=== PATIENT | male | born 1990 | race Caucasian/White ===

== ENCOUNTER 2017-04-18 21:43 | Emergency (ER) | payer SELFPAY ==
[2017-04-18 22:16] LABS: Basophils % (Auto) 0.3 % (0.0-1.8); Eosinophils # (Auto) 0.3 K/mm3 (0.0-0.4); Eosinophils % (Auto) 2.2 % (0.0-4.3); Hematocrit 48.3 % (35.5-45.6); Hemoglobin 16.7 gm/dl (11.8-15.2); Lymphocytes # (Auto) 4.5 K/mm3 (1.2-5.4); Lymphocytes % (Auto) 36.7 % (13.4-35.0); Mean Corpuscular HGB Conc 35 % (32-34); Mean Corpuscular Hemoglobin 28 pg (28-32); Mean Corpuscular Volume 82 fl (84-94); Monocytes # (Auto) 0.9 K/mm3 (0.0-0.8); Monocytes % (Auto) 7.2 % (0.0-7.3); Platelet Count 175 K/mm3 (140-440); Red Blood Count 5.87 M/mm3 (3.65-5.03)
[2017-04-18 22:30] LABS: Alanine Aminotransferase 21 units/L (7-56); Albumin 4.6 g/dL (3.9-5); BUN/Creatinine Ratio 16; Blood Urea Nitrogen 14 mg/dL (9-20); Calcium 9.2 mg/dL (8.4-10.2); Hemolysis Index 10
[2017-04-19 00:55] LABS: Bilirubin,Urine NEG (Negative); Blood,Urine NEG (Negative); Color,Urine Yellow (Yellow); Mucus,Urine 1+ /HPF; Protein,Urine <15 mg/dL mg/dL (Negative); WBC,Urine < 1.0 /HPF (0.0-6.0)
[2017-04-19] MEDS ORDERED: TYLENOL PO ONE (01:13)
[2017-04-19] MEDS ORDERED: TYLENOL ONE (01:14)
[2017-04-19] MEDS ORDERED: MORPHINE IV ONE (03:14)
--- NOTE | 2017-04-19 03:30 | Emergency Department Report ---
HPI - General Chief Complaint: Abdominal Pain Time Seen by Provider: 04/19/17 02:55 - HPI HPI: 26-year-old male presents to the emergency department with complaint of some lower left quadrant and periumbilical abdominal discomfort that has been going on since last Sunday, 5 days ago. He denies any nausea, vomiting, fever, back pain, penile discharge. He says that there was a small amount of dysuria earlier today. He did not take anything for her symptoms prior to presentation. He denies any past history. He does not have a primary care physician. ED Past Medical Hx - Past Medical History Previous Medical History?: No - Surgical History Past Surgical History?: No - Social History Smoking Status: Never Smoker Substance Use Type: None - Medications Home Medications: Home Medications Medication Instructions Recorded Confirmed Last Taken Type Acyclovir [Zovirax Tab] 800 mg PO Q6HR #50 tab 10/07/15 Unknown Rx HYDROcodone/APAP 5-325 [[place] 1 each PO Q6HR PRN #10 tablet 04/19/17 Unknown Rx 5-325 mg TAB] ED Review of Systems ROS: Stated complaint: ABDOMINAL PAIN Other details as noted in HPI Comment: All other systems reviewed and negative Constitutional: denies: chills, fever Eyes: denies: eye pain, eye discharge, vision change ENT: denies: ear pain, throat pain Respiratory: denies: cough, shortness of breath, wheezing Cardiovascular: denies: chest pain, palpitations Gastrointestinal: abdominal pain, nausea, vomiting Genitourinary: denies: urgency, dysuria Musculoskeletal: denies: back pain, joint swelling, arthralgia Skin: denies: rash, lesions Neurological: denies: headache, weakness, paresthesias Physical Exam - Physical Exam Vital Signs: Vital Signs 04/18/17 04/19/17 21:51 02:27 Temperature 98 F 98.4 F Pulse Rate 74 Respiratory 16 Rate Blood Pressure 127/95 O2 Sat by Pulse 98 Oximetry Physical Exam: GENERAL: The patient is well-developed well-nourished. HENT: Normocephalic. Atraumatic. Patient has moist mucous membranes. EYES: Extraocular motions are intact. Pupils equal reactive to light bilaterally. NECK: Supple. Trachea is midline. CHEST/LUNGS: Clear to auscultation. There is no respiratory distress noted. HEART/CARDIOVASCULAR: Regular. There is no tachycardia. There is no murmur. ABDOMEN: Abdomen is soft. There is some tenderness palpation to the left side of the abdomen. No guarding. Patient has normal bowel sounds. There is no abdominal distention. SKIN: Skin is warm and dry. NEURO: The patient is awake, alert, and oriented. The patient is cooperative. The patient has no focal neurologic deficits. The patient has normal speech. MUSCULOSKELETAL: There is no tenderness or deformity. There is no limitation range of motion. There is no evidence of acute injury. ED Course Vital Signs 04/18/17 04/19/17 21:51 02:27 Temperature 98 F 98.4 F Pulse Rate 74 Respiratory 16 Rate Blood Pressure 127/95 O2 Sat by Pulse 98 Oximetry ED Medical Decision Making - Lab Data Result diagrams: 04/18/17 21:58 04/18/17 21:58 - Radiology Data Radiology results: report reviewed EXAM: CT ABDOMEN PELVIS W CON HISTORY: lower Abd pain TECHNIQUE: Routine axial imaging was obtained of the abdomen pelvis following the intravenous injection of 100 cc of Omnipaque 350. Delayed axial imaging was obtained through the kidneys ureters and bladder. Sagittal coronal reconstructions were reviewed. FINDINGS: The lung bases are clear. Pleural fluid is not seen. The liver, gallbladder, pancreas, spleen, and adrenal glands appear normal. The kidneys enhance normally. The vasculatures enhance normally. The bowel loops overall are normal in caliber. There are no suspicious air-fluid levels. The appendix appears normal. There no evidence of free fluid or adenopathy. There is a small umbilical hernia containing omental fat. In the pelvis the prostate gland and bladder appear normal. The skeletal structures otherwise appear well maintained. IMPRESSION: No acute process in the abdomen and pelvis. Small umbilical hernia containing omental fat. Transcribed By: MARTA Dictated By: JOSEPH MAGANA MD Electronically Authenticated By: JOSEPH MAGANA MD Signed Date/Time: 04/19/17 8785 - Medical Decision Making Patient presents to the emergency department with about 5 days of abdominal pain. On examination he has normal bowel sounds. There is some left-sided tenderness to palpation but no guarding. Labs are unremarkable including no leukocytosis, no electrolyte abnormalities, renal insufficiency, glucose abnormalities. He has normal belly labs including bilirubin, lipase and LFTs. Urinalysis does not show any urinary tract infection. CT of the abdomen and pelvis shows no acute process. Overall I did not find any etiology of the patient's symptoms but he appears safe for discharge home at this time for outpatient follow-up. Vital signs stable including being afebrile. He'll be discharged home with some pain medication, referrals for both primary care and gastroenterology. He has been encouraged to return to the emergency Department with any worsening of symptoms or any acute distress. - Differential Diagnosis gastritis, appendicitis, diverticulitis, pancreatitis Critical Care Time: No Critical care attestation.: If time is entered above; I have spent that time in minutes in the direct care of this critically ill patient, excluding procedure time. ED Disposition Clinical Impression: Abdominal pain Qualifiers: Abdominal location: unspecified location Qualified Code(s): R10.9 - Unspecified abdominal pain Disposition: TO HOME OR SELFCARE Is pt being admited?: No Condition: Stable Instructions: Abdominal Pain (ED) Additional Instructions: Please follow up with a primary care physician in the next few days. I have given you a referral for a local pecan huller, Dr. Gonsalves, to follow up regarding your abdominal pain. Return to the emergency Department with any worsening of your symptoms or any acute distress. You have been prescribed a medication that is sedating and therefore should not be taken prior to driving, working, and responsible for children and in no way should be mixed with alcohol of any quantity. Prescriptions: HYDROcodone/APAP 5-325 [[place] 5-325 mg TAB] 1 each PO Q6HR PRN #10 tablet PRN Reason: Pain Referrals: TRINIDAD GONSALVES MD [Staff Physician] - 3-5 Days [facility] [place] [Outside] - 3-5 Days Time of Disposition: 04:54 Print Language: ENGLISH
[2017-04-19 04:06] VITALS: BP 120/80
--- NOTE | 2017-04-19 04:44 | Cat Scan Report ---
FINAL REPORT EXAM: CT ABDOMEN PELVIS W CON HISTORY: lower Abd pain TECHNIQUE: Routine axial imaging was obtained of the abdomen pelvis following the intravenous injection of 100 cc of Omnipaque 350. Delayed axial imaging was obtained through the kidneys ureters and bladder. Sagittal coronal reconstructions were reviewed. FINDINGS: The lung bases are clear. Pleural fluid is not seen. The liver, gallbladder, pancreas, spleen, and adrenal glands appear normal. The kidneys enhance normally. The vasculatures enhance normally. The bowel loops overall are normal in caliber. There are no suspicious air-fluid levels. The appendix appears normal. There no evidence of free fluid or adenopathy. There is a small umbilical hernia containing omental fat. In the pelvis the prostate gland and bladder appear normal. The skeletal structures otherwise appear well maintained. IMPRESSION: No acute process in the abdomen and pelvis. Small umbilical hernia containing omental fat.
== END 2017-04-19 05:04 | disposition home or self-care (01) ==
LOC: ED 21:43
DX: R10.32 Left lower quadrant pain (principal); R10.33 Periumbilical pain
CPT/HCPCS: 36415; 74177; 80053; 81001; 83690; 85025; 96374; 99284; J2270; Q9967

== ENCOUNTER 2018-08-12 19:44 | Emergency (ER) | payer OTHER ==
[2018-08-12] MEDS ORDERED: MORPHINE IV ONE ×2 (20:25→22:32)
[2018-08-12] MEDS ORDERED: NACL 0.9% 1000 ML 1,000 ML IV ONE (20:25)
[2018-08-12] MEDS ORDERED: MORPHINE ONE ×3 (20:40→22:52)
[2018-08-12 20:41] LABS: Basophils # (Auto) 0.1 K/mm3 (0.0-0.1); Basophils % (Auto) 0.7 % (0.0-1.8); Eosinophils # (Auto) 0.2 K/mm3 (0.0-0.4); Eosinophils % (Auto) 2.3 % (0.0-4.3); Hematocrit 44.8 % (35.5-45.6); Hemoglobin 15.3 gm/dl (11.8-15.2); Lymphocytes # (Auto) 3.3 K/mm3 (1.2-5.4); Lymphocytes % (Auto) 31.1 % (13.4-35.0); Mean Corpuscular HGB Conc 34 % (32-34); Mean Corpuscular Volume 85 fl (84-94); Monocytes # (Auto) 0.8 K/mm3 (0.0-0.8); Monocytes % (Auto) 7.5 % (0.0-7.3); Platelet Count 140 K/mm3 (140-440); Red Cell Distribution Width 13.9 % (13.2-15.2)
--- NOTE | 2018-08-12 20:46 | Emergency Department Report ---
HPI - General Time Seen by Provider: 08/12/18 20:18 - HPI HPI: 27-year-old male presents to the emergency department with complaint of left knee and thigh pain that has been going on since he had a fall yesterday. He presents with some mild bruising and mild swelling. He denies any past medical history. He has not taken anything for her symptoms prior to presentation. Patient says that he was doing some type of activity yesterday when his knee bent medially. Since that time, and due to all of these symptoms, the patient is no longer able to bear any weight or ambulate. ED Past Medical Hx - Past Medical History Previous Medical History?: No - Surgical History Past Surgical History?: No - Social History Smoking Status: Never Smoker Substance Use Type: None - Medications Home Medications: Home Medications Medication Instructions Recorded Confirmed Last Taken Type Acyclovir [Zovirax Tab] 800 mg PO Q6HR #50 tab 10/07/15 Unknown Rx HYDROcodone/APAP 5-325 [[place] 1 each PO Q6HR PRN #10 tablet 08/12/18 Unknown Rx 5-325 mg TAB] ED Review of Systems ROS: Stated complaint: LT LEG/KNEE PAIN Other details as noted in HPI Comment: All other systems reviewed and negative Constitutional: denies: chills, fever Eyes: denies: eye pain, vision change ENT: denies: ear pain, throat pain Respiratory: denies: cough, shortness of breath Cardiovascular: denies: chest pain, palpitations Gastrointestinal: denies: abdominal pain, vomiting Genitourinary: denies: dysuria, discharge Musculoskeletal: joint swelling, arthralgia, myalgia. denies: back pain Skin: other (echymoses). denies: rash Neurological: denies: headache, numbness Physical Exam - Physical Exam Vital Signs: Vital Signs 08/12/18 20:28 Temperature 98.2 F Pulse Rate 76 Blood Pressure 141/94 Physical Exam: GENERAL: The patient is well-developed well-nourished. HENT: Normocephalic. Atraumatic. Patient has moist mucous membranes. EYES: Extraocular motions are intact. Pupils equal reactive to light bilaterally. NECK: Supple. Trachea is midline. CHEST/LUNGS: Clear to auscultation. There is no respiratory distress noted. HEART/CARDIOVASCULAR: Regular. There is no tachycardia. There is no murmur. ABDOMEN: There is no abdominal distention. SKIN: There is some nonpitting swelling of the left anterior knee. NEURO: The patient is awake, alert, and oriented. The patient is cooperative. The patient has no focal neurologic deficits. The patient has normal speech. MUSCULOSKELETAL: There is tenderness to palpation to the circumferential left knee and distal thigh. Negative anterior and posterior drawer test. Distal pulses intact. Decreased range of motion of the left leg and knee secondary to pain. ED Course Vital Signs 08/12/18 20:28 Temperature 98.2 F Pulse Rate 76 Blood Pressure 141/94 ED Medical Decision Making - Lab Data Result diagrams: 08/12/18 20:42 08/12/18 20:42 - Radiology Data Radiology results: image reviewed interpreted by me: X-ray of the left knee and femur do not show any fractures, dislocations, or any acute processes. - Medical Decision Making This patient presents to the emergency department with complaint of left knee pain and pain to the distal left thigh after some type of an injury yesterday. There is some mild anterior knee swelling and there is circumferential left knee and distal thigh pain to palpation. X-rays were done of the knee and left femur but did not show any signs of any fracture, dislocation or any acute process. However there still could be underlying ligamentous or tendinous or meniscal injury. Patient will be placed in a knee immobilizer and on crutches and will remain nonweightbearing until follow-up with orthopedist. He will return to the ER with any worsening of his symptoms or any acute distress. - Differential Diagnosis fracture, meniscus tear, ligament/tendon injury, dislocation Critical Care Time: No Critical care attestation.: If time is entered above; I have spent that time in minutes in the direct care of this critically ill patient, excluding procedure time. ED Disposition Clinical Impression: Left leg pain Left knee pain Qualifiers: Chronicity: acute Qualified Code(s): M25.562 - Pain in left knee Knee injury Qualifiers: Encounter type: initial encounter Laterality: left Qualified Code(s): S89.92XA - Unspecified injury of left lower leg, initial encounter Disposition: TO HOME OR SELFCARE Is pt being admited?: No Condition: Stable Instructions: Knee Pain (ED), Arthralgia (ED), Knee Immobilizer (ED) Additional Instructions: Remain in the knee immobilizer and nonweightbearing with the crutches until follow-up with an orthopedist. I am giving you a referral for two different orthopedic groups to follow up regarding your knee and leg pains. Return to the emergency Department with any worsening of your symptoms or any acute distress. You have been prescribed a medication that is sedating and therefore should not be taken prior to driving, working, and responsible for children and in no way should be mixed with alcohol of any quantity. Prescriptions: HYDROcodone/APAP 5-325 [[place] 5-325 mg TAB] 1 each PO Q6HR PRN #10 tablet PRN Reason: Pain Referrals: JOSEPH SINGH MD [Staff Physician] - 2-3 Days [facility] [Provider Group] - 2-3 Days Time of Disposition: 22:57 Print Language: PALESTINIAN
[2018-08-12 20:59] LABS: BUN/Creatinine Ratio 16; Blood Urea Nitrogen 14 mg/dL (9-20); Calcium 9.4 mg/dL (8.4-10.2); Hemolysis Index 13
--- NOTE | 2018-08-12 22:31 | XRay Report ---
LEFT FEMUR 5 VIEWS INDICATION / CLINICAL INFORMATION: left leg pain. COMPARISON: None available. FINDINGS: Negative. Signer Name: Yna Spangler MD Signed: 08/12/2018 9:27 PM Workstation Name: [id number]
--- NOTE | 2018-08-12 22:32 | XRay Report ---
LEFT KNEE 3 VIEW INDICATION / CLINICAL INFORMATION: left knee pain. COMPARISON: None available. FINDINGS: Negative. Signer Name: Yan Spangler MD Signed: 08/12/2018 9:28 PM Workstation Name: [id number]
[2018-08-12 23:16] VITALS: BP 132/71
== END 2018-08-12 23:20 | disposition home or self-care (01) ==
LOC: ED 19:44
DX: S89.92XA Unspecified injury of left lower leg, initial encounter (principal); M79.652 Pain in left thigh; W19.XXXA Unspecified fall, initial encounter; Y93.89 Activity, other specified; Y92.89 Other specified places as the place of occurrence of the external cause; Y99.8 Other external cause status
CPT/HCPCS: 36415; 73552; 73562; 80048; 85025; 96374; 96376; 99284; J2270; J7030

== ENCOUNTER 2021-01-19 02:11 | Emergency (ER) | payer SELFPAY ==
[2021-01-19] MEDS ORDERED: IBUPROFEN 800 MG TAB PO ONE (02:21)
--- NOTE | 2021-01-19 02:25 | Emergency Department Report ---
ED General Adult HPI - General Stated complaint: CHEST PAIN Time Seen by Provider: 01/19/21 02:21 - History of Present Illness Initial comments: Patient presents by ambulance with multiple issues. He is complaining of chest pain and back pain. He states his arms and legs hurt. His abdomen hurts. He states that he hurts all over. Pain has been present since Sunday. There has been no fever or chills reported. He has no vomiting or diarrhea. He has had no dysuria or hematuria. He has no cough or congestion. He is just complaining of body pain. He denies recent trauma. He has had no other illness. He has had no sick contacts. He used Tylenol without symptomatic improvement. - Related Data Previous Rx's Medication Instructions Recorded Last Taken Type Acyclovir [Zovirax Tab] 800 mg PO Q6HR #50 tab 10/07/15 Unknown Rx HYDROcodone/APAP 5-325 [[place] 1 each PO Q6HR PRN #10 tablet 08/12/18 Unknown Rx 5-325 mg TAB] Ibuprofen [Motrin] 600 mg PO Q8H PRN #20 tablet 01/19/21 Unknown Rx Allergies Allergy/AdvReac Type Severity Reaction Status Date / Time No Known Allergies Allergy Verified 01/19/21 02:29 ED Review of Systems ROS: Stated complaint: CHEST PAIN Other details as noted in HPI Comment: All other systems reviewed and negative Constitutional: denies: fever Eyes: denies: vision change ENT: denies: throat pain Respiratory: denies: cough Cardiovascular: as per HPI Endocrine: denies: unexplained weight loss Gastrointestinal: as per HPI Genitourinary: denies: dysuria Musculoskeletal: as per HPI Skin: denies: rash Neurological: denies: headache Hematological/Lymphatic: denies: easy bruising ED Past Medical Hx - Past Medical History Previous Medical History?: No - Family History Family history: no significant - Social History Smoking Status: Never Smoker Substance Use Type: None - Medications Home Medications: Home Medications Medication Instructions Recorded Confirmed Last Taken Type Acyclovir [Zovirax Tab] 800 mg PO Q6HR #50 tab 10/07/15 Unknown Rx HYDROcodone/APAP 5-325 [[place] 1 each PO Q6HR PRN #10 tablet 08/12/18 Unknown Rx 5-325 mg TAB] Ibuprofen [Motrin] 600 mg PO Q8H PRN #20 tablet 01/19/21 Unknown Rx ED Physical Exam - General Limitations: Other (Pulse ox noted and normal) General appearance: alert, in distress (Appears uncomfortable) - Head Head exam: Present: atraumatic, normocephalic, normal inspection - Eye Eye exam: Present: normal appearance, EOMI. Absent: scleral icterus - ENT ENT exam: Present: mucous membranes dry, normal external ear exam - Neck Neck exam: Present: normal inspection. Absent: meningismus - Respiratory Respiratory exam: Present: normal lung sounds bilaterally. Absent: respiratory distress - Cardiovascular Cardiovascular Exam: Present: regular rate, normal rhythm - GI/Abdominal GI/Abdominal exam: Present: soft. Absent: distended - Extremities Exam Extremities exam: Present: normal capillary refill - Back Exam Back exam: Present: CVA tenderness (R), CVA tenderness (L), other (Diffuse tenderness is noted) - Neurological Exam Neurological exam: Present: alert, oriented X3, CN II-XII intact, normal gait. Absent: motor sensory deficit - Psychiatric Psychiatric exam: Present: normal affect, normal mood - Skin Skin exam: Present: warm, dry ED Course Vital Signs 01/19/21 01/19/21 01/19/21 02:29 03:34 04:15 Temperature 100.8 F H Pulse Rate 115 H 101 H 102 H Respiratory 16 17 16 Rate Blood Pressure 148/98 146/92 172/90 [Left] O2 Sat by Pulse 96 97 97 Oximetry - Reevaluation(s) Reevaluation #1: 01/19/21 02:24 EMS was met upon arrival. Labs and x-rays were ordered. Old records reviewed. ED Medical Decision Making - Lab Data Result diagrams: 01/19/21 02:41 - EKG Data -: EKG Interpreted by Me - EKG Data 01/19/21 05:02 EKG shows normal sinus rhythm at 104. It was tachycardic. Intervals were normal including a QRS of 80 and a QT corrected of 385. Artifact was noted and wandering baseline. He otherwise has no ST or T wave change. There is isolated T wave inversion in 3-lead. Patient has no ischemic change. There is no old EKG for comparison. - Radiology Data Radiology results: report reviewed - Medical Decision Making Patient presented secondary to multiple complaints including myalgias. Etiology for this is unclear. Whether he has an infectious source is not known. He does not have obvious infection at this time. There is no radiographic evidence of pneumonia but he does not appear to be septic or toxic. Patient does not have EKG changes suggestive of STEMI. He will be treated symptomatically and referred for outpatient evaluation and follow-up. Critical Care Time: No Critical care attestation.: If time is entered above; I have spent that time in minutes in the direct care of this critically ill patient, excluding procedure time. ED Disposition Clinical Impression: Myalgia Disposition: HOME / SELF CARE / HOMELESS Is pt being admited?: No Condition: Stable Instructions: Musculoskeletal Pain Additional Instructions: Drink plenty water. Return for problems. Follow-up with your regular doctor for recheck. Prescriptions: Ibuprofen [Motrin] 600 mg PO Q8H PRN #20 tablet PRN Reason: Pain Referrals: PRIMARY CARE, [Primary Care Provider] - 3-5 Days MARIO HARDEN MD [Staff Physician] - 3-5 Days Print Language: UKRAINIAN
--- NOTE | 2021-01-19 02:52 | XRay Report ---
XR chest routine 2V INDICATION / CLINICAL INFORMATION: cp, back pain. COMPARISON: None available. FINDINGS: SUPPORT DEVICES: None. HEART /PULMONARY VASCULATURE: No significant abnormality. LUNGS / PLEURA: Low lung volumes with streaky bibasilar opacities, likely reflecting volume loss. No pneumothorax. ADDITIONAL FINDINGS: No significant additional findings. IMPRESSION: Lung volumes with bibasilar volume loss. Otherwise, no acute chest process. Signer Name: Jad Gutierrez MD Signed: 01/19/2021 2:48 AM Workstation Name: [id number]
[2021-01-19 03:14] LABS: BUN/Creatinine Ratio 10; Blood Urea Nitrogen 10 mg/dL (9-20); Calcium 9.3 mg/dL (8.4-10.2); Hemolysis Index 45
[2021-01-19 06:49] VITALS: BP 100/62
--- NOTE | 2021-01-20 10:25 | Electrocardiograph Report ---
[facility] Test Date: 2021-01-19 Test Time: 04:09:34 Pat Name: JUAN MANUEL JIMENES Department: Room: Gender: M Conference Manager: BASIL : 1990 Requested By: TRINIDAD TERRY Order Number: [id number] Reading MD: Abdiel Barrett Measurements Intervals [place] Rate: 104 P: 47 CO: 129 QRS: 0 QRSD: 80 T: 9 QT: 292 QTc: 385 Interpretive Statements Sinus tachycardia No previous ECG available for comparison Electronically Signed On 01-20-2021 10:25:19 EST by Abdiel Barrett
== END 2021-01-19 05:15 | disposition home or self-care (01) ==
LOC: ED 02:11
DX: M79.18 Myalgia, other site (principal); R07.89 Other chest pain; M54.89 Other dorsalgia; R10.9 Unspecified abdominal pain; M79.601 Pain in right arm; M79.602 Pain in left arm; M79.661 Pain in right lower leg; M79.662 Pain in left lower leg; Z79.899 Other long term (current) drug therapy
CPT/HCPCS: 36415; 71046; 80048; 93005; 99284